=== PATIENT | female | born 1955 | race Caucasian/White ===

== ENCOUNTER 2016-12-12 11:16 | Outpatient (CLI) | payer OTHER ==
--- NOTE | 2016-12-12 13:15 | RAD ---
TWO VIEW CHEST: History: Chest wall pain. FINDINGS: No evidence of infiltrate. Heart and mediastinum appear normal. Vascular markings normal. Osseous st ructures unremarkable. IMPRESSION: Unremarkable chest. POS: [id number]
== END 2016-12-12 11:17 | disposition home or self-care (01) ==
LOC: MADRAD 11:16
PROVIDERS: ATTEND Obstetrics & Gynecology
DX: R07.89 Other chest pain (principal)
CPT/HCPCS: 71020